=== PATIENT | male | born 1980 | race African-American/Black ===

== ENCOUNTER 2016-10-13 22:54 | Emergency (ER) | payer SELFPAY ==
[2016-10-13 22:59] VITALS: BP 129/89
--- NOTE | 2016-10-14 00:26 | ER Document Report ---
ED General - General Chief Complaint: Dizziness Stated Complaint: HIGH BLOOD SUGAR Notes: Patient is a 36-year-old male with a past medical history of schizophrenia who presents to the emergency department today with concerns of apparently being lightheaded and having hyperglycemia. At time of arrival to the emergency department his blood sugars are noted to be normal. Patient apparently has frequent visits emergency department for similar concerns. At time of my evaluation patient states that he does not wish to be here in the emergency department stating that his family called EMS and he did not think he needed to be here in the hospital today. At time of my assessment he denies any complaints at all states that earlier today he felt slightly lightheaded but this is completely resolved without any intervention. Nothing worsens or improves his symptoms. States he's had similar symptoms in the past and he hasn 't been eating which she notes that he has had decreased oral intake in the last several days due to having influenza earlier in the week. He has not seen his primary care doctor regarding today's concerns. TRAVEL OUTSIDE OF THE [place] IN LAST 30 DAYS: No - Related Data Allergies/Adverse Reactions: No Known Allergies Allergy (Verified 10/13/16 23:59) Past Medical History - General Information source: Patient - Social History Smoking Status: Never Smoker Frequency of alcohol use: None Drug Abuse: None Lives with: Spouse/Significant other Family History: Reviewed & Not Pertinent Patient has suicidal ideation: No Patient has homicidal ideation: No Renal/ Medical History: Denies: Hx Peritoneal Dialysis Review of Systems - Review of Systems Notes: Constitutional: Negative for fever. HENT: Negative for sore throat. Eyes: Negative for visual changes. Cardiovascular: Negative for chest pain. Respiratory: Negative for shortness of breath. Gastrointestinal: Negative for abdominal pain, vomiting or diarrhea. Genitourinary: Negative for dysuria. Musculoskeletal: Negative for back pain. Skin: Negative for rash. Neurological: Negative for headaches, weakness or numbness. 10 point ROS negative except as marked above and in HPI. Physical Exam - Vital signs Vitals: Temp Pulse Resp BP Pulse Ox 98.5 F 95 16 129/89 H 98 10/13/16 22:57 10/13/16 22:57 10/13/16 22:57 10/13/16 22:57 10/13/16 22:57 Interpretation: Normal Notes: PHYSICAL EXAMINATION: GENERAL: Well-appearing, well-nourished and in no acute distress. HEAD: Atraumatic, normocephalic. EYES: Pupils equal round and reactive to light, extraocular movements intact, sclera anicteric, conjunctiva are normal. ENT: nares patent, oropharynx clear without exudates. Moist mucous membranes. NECK: Normal range of motion, supple without lymphadenopathy LUNGS: Breath sounds clear to auscultation bilaterally and equal. No wheezes rales or rhonchi. HEART: Regular rate and rhythm without murmurs ABDOMEN: Soft, nontender, normoactive bowel sounds. No guarding, no rebound. No masses appreciated. EXTREMITIES: Normal range of motion, no pitting or edema. No cyanosis. NEUROLOGICAL: No focal neurological deficits. Moves all extremities spontaneously and on command. PSYCH: Normal mood, normal affect. SKIN: Warm, Dry, normal turgor, no rashes or lesions noted. Course - Re-evaluation Re-evalutation: 10/14/16 00:26 Patient presents with concerns of lightheadedness and possible hypoglycemia although is not hyperglycemic here in the emergency department and did not receive anything that would've dropped his blood sugar. Vitals are within normal limits at triage and at time of discharge. Physical examination is unremarkable. Patient has tolerated oral intake without difficulty. Patient was not noted to be in distress at any point during their ER visit. At this time, based on the reassuring evaluation, I do not suspect an acute DC, pulmonary embolus, aortic dissection, acute intra-abdominal pathology, stroke, or sepsis. Due to the patient not having any complaints at the time of my assessment, I do not believe any labs, imaging or further evaluation is indicated at this time. Will discharge with return precautions and follow-up recommendations. Verbal discharge instructions given a the bedside and opportunity for questions given. Medication warnings reviewed. Patient is in agreement with this plan and has verbalized understanding of return precautions and the need for primary care follow-up in the next 24-72 hours. - Vital Signs Vital signs: Temp Pulse Resp BP Pulse Ox 98.5 F 95 16 129/89 H 98 10/13/16 22:57 10/13/16 22:57 10/13/16 22:57 10/13/16 22:57 10/13/16 22:57 - Laboratory Laboratory results interpreted by me: 10/13/16 23:01 POC Glucose 115 H Discharge - Discharge Clinical Impression: Lightheadedness Condition: Good Disposition: HOME, SELF-CARE Additional Instructions: Please return to the emergency room immediately if you experience any concerning symptoms including high fevers, severe headache, chest pain, difficulty breathing, abdominal pain, slurred speech, numbness or weakness in your arms or legs, or any other symptom that concerns you.
== END 2016-10-14 00:40 | disposition home or self-care (01) ==
LOC: ER 22:54
DX: R42 Dizziness and giddiness (principal); R73.9 Hyperglycemia, unspecified
CPT/HCPCS: 82962; 99284